=== PATIENT | male | born 1970 | race Caucasian/White ===

== ENCOUNTER 2019-01-26 09:01 | Outpatient (CLI) | payer OTHER ==
--- NOTE | 2019-01-26 10:06 | ULT ---
GALLBLADDER ULTRASOUND: HISTORY: Right upper quadrant abdominal pain FINDINGS: The liver demonstrates homogeneous echotexture without focal mass or intrahepatic biliary ductal dila tation. Single mobile gallstone is seen without gallbladder wall thickening or pericholecystic fluid.. The right kidney and pancreas are normal. The common duct measures3.4mm in diameter. No free fluid is seen in the Callaway's pouch. IMPRESSION: Cholelithiasis
== END 2019-01-26 09:02 | disposition home or self-care (01) ==
LOC: SCSULT 09:01
PROVIDERS: ATTEND Family Medicine
DX: R10.11 Right upper quadrant pain (principal); K80.20 Calculus of gallbladder without cholecystitis without obstruction
CPT/HCPCS: 76705